=== PATIENT | female | born 1995 ===

== ENCOUNTER 2021-02-10 04:46 | Emergency (ER) | payer SELFPAY ==
[2021-02-10 05:12] LABS: Bacteria,Urine 2+ /HPF (Negative); Bilirubin,Urine NEG (Negative); Blood,Urine NEG (Negative); Color,Urine Yellow (Yellow); Mucus,Urine 2+ /HPF; Protein,Urine <15 mg/dL mg/dL (Negative); Urobilinogen,Urine < 2.0 mg/dL (<2.0)
[2021-02-10 05:56] LABS: Hematocrit 38.4 % (30.3-42.9); Hemoglobin 12.5 gm/dl (10.1-14.3); Mean Corpuscular HGB Conc 33 % (30-34); Mean Corpuscular Volume 89 fl (79-97); Platelet Count 179 K/mm3 (140-440); Red Blood Count 4.32 M/mm3 (3.65-5.03); Red Cell Distribution Width 15.1 % (13.2-15.2)
[2021-02-10 06:16] LABS: Alanine Aminotransferase 13 units/L (7-56); Albumin 4.5 g/dL (3.9-5); Blood Urea Nitrogen 8 mg/dL (7-17); Calcium 9.3 mg/dL (8.4-10.2); Hemolysis Index 0
[2021-02-10 06:26] LABS: BUN/Creatinine Ratio 13
[2021-02-10 07:02] LABS: Band Neutrophils # (Manual) 0.1 K/mm3; Poikilocytosis 1+; Schistocytes Rare; Total Cells Counted 100
[2021-02-10 07:03] LABS: Ovalocytes 1+; Platelet Estimate Consistent w Auto
== END 2021-02-10 10:18 | disposition left against medical advice (07) ==
LOC: ED 04:46
DX: R10.9 Unspecified abdominal pain (principal); Z53.21 Procedure and treatment not carried out due to patient leaving prior to being seen by health care provider
CPT/HCPCS: 36415; 80053; 81001; 84702; 84703; 85007; 85025